=== PATIENT | male | born 1955 ===

== ENCOUNTER 2024-12-25 11:30 | Inpatient (IN) | payer OTHER ==
[~2024-12-25] VITALS: Ht 167.6 cm; Wt 83.9 kg
[2024-12-25] MEDS ORDERED: FARXIGA10 MG PO (13:55)
[2024-12-25] MEDS ORDERED: ZESTRIL20 MG PO (13:55)
[2024-12-25] MEDS ORDERED: SYNJARDY 12.5-1 EACH PO (13:55)
[2024-12-25] MEDS ORDERED: COZAAR50 MG PO (13:56)
[2024-12-25] MEDS ORDERED: CARDIZEM30 MG PO (13:56)
[2024-12-25] MEDS ORDERED: TAMS0.4C PO (13:56)
[2024-12-25] MEDS ORDERED: ELIQUIS5 MG PO (13:57)
[2024-12-25] MEDS ORDERED: TERAZOSIN HCL2 M1 PO (13:57)
[2024-12-25] MEDS ORDERED: GRALISE600 MG PO (13:58)
[2024-12-25] MEDS ORDERED: FAMOTIDINE40 MG PO (13:58)
[2024-12-25 13:59] VITALS: BP 149/71
[2024-12-25 14:02] VITALS: BP 149/71
[2024-12-25 15:30] LABS: RH POSITIVE
[2024-12-31] MEDS ORDERED: SODIUM CHLORIDE 0.45 % 1,000 ML IV SCH (10:15)
[2024-12-31] MEDS ORDERED: ONDANSETRON HCL 2 MG/ML VIAL IV PRN (10:15)
[2024-12-31] MEDS ORDERED: MORPHINE SULFATE 4 MG/ML CARTRIDGE IV PRN (10:15)
[2024-12-31] MEDS ORDERED: MORPHINE SULFATE 2 MG/ML CARTRIDGE IV NR (10:15)
[2024-12-31] MEDS ORDERED: MORPHINE SULFATE 4 MG/ML VIAL IV ONE ×2 (11:05→12:20)
[2024-12-31] MEDS ORDERED: CEFAZOLIN SODIUM 1,000 MG VIAL IV SCH (12:00)
[2024-12-31] MEDS ORDERED: DILTIAZEM HCL 30 MG TABLET PO SCH (13:00)
[2024-12-31] MEDS ORDERED: LIDOCAINE HCL 1%/EPINEPHRINE 20ML VIAL IJ ONE (13:45)
[2024-12-31] MEDS ORDERED: POVIDONE-IODINE 0.75 OZ PACKET TOP ONE (13:45)
[2024-12-31] MEDS ORDERED: TRANEXAMIC ACID 100MG/1ML (1000MG) AMPUL IV ONE ×2 (14:00)
[2024-12-31] MEDS ORDERED: BUPIVACAINE HCL 30 ML VIAL IJ ONE (14:00)
[2024-12-31] MEDS ORDERED: CEFOXITIN SODIUM 2,000 MG VIAL IV ONE (14:00)
[2024-12-31] MEDS ORDERED: MORPHINE SULFATE 4 MG/ML CARTRIDGE IV ONE (14:00)
[2024-12-31] MEDS ORDERED: KETOROLAC TROMETHAMINE 60 MG VIAL IM ONE (14:00)
[2024-12-31] MEDS ORDERED: MetFORMIN HCL 1000 MG TABLET PO SCH (17:00)
[2024-12-31 17:30] VITALS: BP 191/92; O2SAT 97
[2024-12-31 18:37] VITALS: BP 194/80
[2024-12-31 20:32] VITALS: BP 159/72; O2SAT 96
[2024-12-31] MEDS ORDERED: TERAZOSIN HCL 2 MG CAPSULE PO SCH (21:00)
[2024-12-31] MEDS ORDERED: GENTAMICIN SULFATE 40 MG/ML VIAL IV SCH (21:00)
[2025-01-01 07:43] LABS: BASO % 0.8 % (0.1-1.2); EOS # 0.09 (0.04-0.54); EOS % 1.1 % (0.7-7.0); LYMPH # 1.49 (1.18-3.74); LYMPH % 18.7 % (19.3-53.1); MEAN PLATELET VOLUME 11.00 fl (9.4-12.4); MONO # 0.91 (0.24-0.82); MONO % 11.4 % (4.7-12.5); NEUT # 5.37 (1.56-6.13); NEUT % 67.5 % (34.0-71.1); RED CELL DISTRIBUTION WIDTH 13.2 % (11.6-14.4)
[2025-01-01 08:00] VITALS: BP 171/77; O2SAT 98
[2025-01-01] MEDS ORDERED: ACETAMINOPHEN WITH CODEINE 1 UDTAB TABLET PO PRN (08:45)
[2025-01-01] MEDS ORDERED: APIXABAN 2.5 MG TABLET PO SCH (09:00)
[2025-01-01] MEDS ORDERED: IRON FUM,PS/FOLIC/BCOMP,C NO.9 1 CAP CAPSULE PO SCH (09:00)
[2025-01-01] MEDS ORDERED: CELECOXIB 200 MG CAPSULE PO SCH (09:00)
[2025-01-01] MEDS ORDERED: LISINOPRIL 20 MG TABLET PO SCH (09:00)
[2025-01-01] MEDS ORDERED: BACITRACIN 28.35 GM OINT.TUBE TOP SCH (09:00)
[2025-01-01] MEDS ORDERED: LOSARTAN POTASSIUM 50 MG TABLET PO SCH (09:00)
[2025-01-01] MEDS ORDERED: TAMSULOSIN HCL 0.4 MG CAP PO SCH (09:00)
[2025-01-01] MEDS ORDERED: SENNA/DOCUSATE SODIUM 1 TAB TABLET PO SCH (09:00)
[2025-01-01 13:42] LABS: COVID-19 AG NEGATIVE (NEGATIVE)
[2025-01-01] MEDS ORDERED: INSULIN LISPRO 1,000 UNIT/10 ML UNITS SUBCUTANEO PRN (14:00)
[2025-01-01] MEDS ORDERED: DEXTROSE 50 % IN WATER 0.5 G/ML VIAL IV PRN (14:00)
[2025-01-01 14:02] LABS: ALT/SGPT 20.0 U/L (12-78); AST/SGOT 17.0 U/L (15-37); BILIRUBIN TOTAL 0.84 mg/dL (0.3-1.2); BUN CREA RATIO 13.0 (7.0-25.0); CREATININE SERUM 1.41 mg/dL (0.70-1.30); GFR 49.69; GLOBULINA 2.7 G/DL (2.4-3.5); OSMOLALITY SERUM 285.0 MOSM/KG (275-295)
[2025-01-01 14:06] LABS: GLUCOSE FASTING 266.0 mg/dL (65-100)
[2025-01-01 17:11] VITALS: BP 163/70; O2SAT 96
[2025-01-01] MEDS ORDERED: TERAZOSIN HCL 1 MG CAPSULE PO SCH (21:00)
[2025-01-01] MEDS ORDERED: SULFAMETHOXAZOLE/TRIMETHOPRIM DS 1 TAB PO SCH (21:00)
[2025-01-02 00:47] VITALS: BP 150/70; O2SAT 95
[2025-01-02 07:14] LABS: BASO % 0.7 % (0.1-1.2); EOS # 0.11 (0.04-0.54); EOS % 1.4 % (0.7-7.0); LYMPH # 1.42 (1.18-3.74); LYMPH % 18.5 % (19.3-53.1); MEAN PLATELET VOLUME 11.00 fl (9.4-12.4); MONO # 0.80 (0.24-0.82); MONO % 10.4 % (4.7-12.5); NEUT # 5.27 (1.56-6.13); NEUT % 68.5 % (34.0-71.1); RED CELL DISTRIBUTION WIDTH 13.2 % (11.6-14.4)
[2025-01-02] MEDS ORDERED: Septra Ds Tablet PO (08:13)
[2025-01-02] MEDS ORDERED: ELIQUIS5 MG PO (08:14)
[2025-01-02] MEDS ORDERED: INTEGRA PLUS C1 EACH PO (08:14)
[2025-01-02] MEDS ORDERED: ACETAMINOPHEN-1 EAC2 PO (08:15)
== END 2025-01-02 17:42 | disposition home or self-care (01) | DRG 470 ==
LOC: O/R 12-31 06:00 → SURH 12-31 07:00 → SURG 12-31 14:32
PROVIDERS: ADMIT Orthopaedic Surgery Sports Medicine; ATTEND Orthopaedic Surgery Sports Medicine
PROC: 0SRC0J9 Replacement of Right Knee Joint with Synthetic Substitute, Cemented, Open Approach (ICD-10-PCS; principal; 2024-12-31 07:00)
DX: M17.11 Unilateral primary osteoarthritis, right knee (principal); I10 Essential (primary) hypertension